=== PATIENT | male | born 1955 | race American Indian/Alaskan Native ===

== ENCOUNTER 2021-01-24 13:37 | Emergency (ER) | payer MEDICARE ==
[2021-01-24 13:46] VITALS: BP 142/104
--- NOTE | 2021-01-24 14:20 | Emergency Department Report ---
<KIMBERLY SCHMIDT - Last Filed: 01/24/21 16:00> ED Male HPI - General Chief complaint: Urogenital-Male Stated complaint: ISSUES URINATING Time Seen by Provider: 01/24/21 14:15 Source: patient Mode of arrival: Ambulatory Limitations: No Limitations - History of Present Illness Initial comments: 65-year-old male with a past medical history of hypertension and BPH presents to the ER today with complaints of UTI symptoms. Patient reports urinary urgency, urinary frequency, dysuria and decreased urinary output. He states the symptoms started couple days ago. He denies any associated abdominal pain, back pain, penile discharge, testicular pain or swelling, nausea, vomiting, fever or chills. He states that he has been taking his Flomax as prescribed. He denies any history of UTIs, kidney stones or urinary retention requiring Cast in the past. MD Complaint: dysuria -: days(s) - Related Data Previous Rx's Medication Instructions Recorded Last Taken Type Phenazopyridine [Pyridium] 200 mg PO TID #9 tab 01/24/21 Unknown Rx Sulfamethoxazole/Trimethoprim 1 each PO BID #14 tablet 01/24/21 Unknown Rx [Bactrim DS TAB] Allergies Allergy/AdvReac Type Severity Reaction Status Date / Time No Known Allergies Allergy Unverified 01/24/21 13:40 ED Review of Systems Comment: All other systems reviewed and negative Constitutional: denies: chills, fever Eyes: denies: eye pain, eye discharge, vision change ENT: denies: ear pain, throat pain, dental pain, hearing loss, epistaxis Respiratory: denies: cough, shortness of breath, wheezing Cardiovascular: denies: chest pain, palpitations Gastrointestinal: denies: abdominal pain, nausea, diarrhea Genitourinary: urgency, dysuria, frequency. denies: hematuria, discharge, testicular pain, testicular mass Skin: denies: rash, lesions, change in color, change in hair/nails, pruritus Neurological: denies: headache, weakness, paresthesias Psychiatric: denies: anxiety, depression Hematological/Lymphatic: denies: easy bleeding, easy bruising ED Past Medical Hx - Past Medical History Additional medical history: ENLARGE PROSTRATE - Surgical History Additional Surgical History: HERNIA - Social History Smoking Status: Never Smoker Substance Use Type: None - Medications Home Medications: Home Medications Medication Instructions Recorded Confirmed Last Taken Type Phenazopyridine [Pyridium] 200 mg PO TID #9 tab 01/24/21 Unknown Rx Sulfamethoxazole/Trimethoprim 1 each PO BID #14 tablet 01/24/21 Unknown Rx [Bactrim DS TAB] ED Physical Exam - General Limitations: No Limitations General appearance: alert, in no apparent distress - Respiratory Respiratory exam: Absent: respiratory distress - Cardiovascular Cardiovascular Exam: Present: regular rate - GI/Abdominal GI/Abdominal exam: Present: soft. Absent: distended, tenderness, guarding, rebound - Back Exam Back exam: Present: normal inspection. Absent: CVA tenderness (R), CVA tenderness (L) - Neurological Exam Neurological exam: Present: alert, oriented X3, CN II-XII intact, normal gait - Psychiatric Psychiatric exam: Present: normal affect, normal mood - Skin Skin exam: Present: intact ED Medical Decision Making - Radiology Data Radiology results: report reviewed - Medical Decision Making Patient urinalysis concerning for UTI. His post void bladder scan was 76 mL. Urine culture is pending. Patient has no back pain and no abdominal pain. He has no penile discharge or testicular pain or swelling. He has a soft nontender abdomen and no CVA tenderness on exam. He is well-appearing, not toxic and not in any acute distress. He appears hydrated. No indication for any further work-up, admission or emergent consult at this time. Discussed urine results, diagnosis and treatment plan with patient. He expressed understanding of instructions and agree with plan. Patient was stable at time of discharge. ED Disposition Clinical Impression: UTI (urinary tract infection) Disposition: DC-01 TO HOME OR SELFCARE Is pt being admited?: No Does the pt Need Aspirin: No Condition: Stable Instructions: Urinary Tract Infection, Adult, [id number] Additional Instructions: Take the bactrim and pyridium as prescribed. Drink lots of water. COntinue your flomax as prescribed. Follow up with your PCP in next few days. Return to ED if worse. Prescriptions: Sulfamethoxazole/Trimethoprim [Bactrim DS TAB] 1 each PO BID #14 tablet Phenazopyridine [Pyridium] 200 mg PO TID #9 tab Referrals: STACIE STAFFORD MD [Staff Physician] - 3-5 Days Time of Disposition: 15:25 <ROSA BRUMFIELD - Last Filed: 04/05/21 18:54> ED Review of Systems ROS: Stated complaint: ISSUES URINATING Other details as noted in HPI ED Course Vital Signs 01/24/21 13:43 Temperature 98.7 F Pulse Rate 88 Respiratory 18 Rate Blood Pressure 142/104 O2 Sat by Pulse 99 Oximetry ED Medical Decision Making - Lab Data Vital Signs 01/24/21 13:43 Temperature 98.7 F Pulse Rate 88 Respiratory 18 Rate Blood Pressure 142/104 O2 Sat by Pulse 99 Oximetry Lab Results 01/24/21 Range/Units 13:57 Urine Color Yellow (Yellow) Urine Turbidity Cloudy (Clear) Urine pH 6.0 (5.0-7.0) Ur Specific [place] 1.009 (1.003-1.030) Urine Protein 100 mg/dl (Negative) mg/dL Urine Glucose (UA) Neg (Negative) mg/dL Urine Ketones Neg (Negative) mg/dL Urine Blood Lg (Negative) Urine Nitrite Neg (Negative) Urine Bilirubin Neg (Negative) Urine Urobilinogen < 2.0 (<2.0) mg/dL Ur Leukocyte Esterase Lg (Negative) Urine WBC (Auto) > 182.0 H (0.0-6.0) /HPF Urine RBC (Auto) > 182.0 (0.0-6.0) /HPF Urine Bacteria (Auto) 2+ (Negative) /HPF Urine WBC Clumps 2+ /HPF Critical care attestation.: If time is entered above; I have spent that time in minutes in the direct care of this critically ill patient, excluding procedure time. ED Disposition Is pt being admited?: No Does the pt Need Aspirin: No
[2021-01-24 14:39] LABS: Bacteria,Urine 2+ /HPF (Negative); Bilirubin,Urine NEG (Negative); Blood,Urine LG (Negative); Color,Urine Yellow (Yellow); RBC,Urine > 182.0 /HPF (0.0-6.0); Urobilinogen,Urine < 2.0 mg/dL (<2.0); WBC,Urine > 182.0 /HPF (0.0-6.0)
== END 2021-01-24 15:59 | disposition home or self-care (01) ==
LOC: ED 13:37
DX: N39.0 Urinary tract infection, site not specified (principal); Z98.890 Other specified postprocedural states; Z79.899 Other long term (current) drug therapy
CPT/HCPCS: 81001; 87086